=== PATIENT | female | born 1980 | race Caucasian/White ===

== ENCOUNTER 2022-09-27 19:31 | Inpatient (IN) | payer MEDICAID ==
[~2022-09-27] VITALS: Ht 165.1 cm; Wt 92.1 kg
[2022-09-27] MEDS ORDERED: ARIP5TAB37 PO (19:45)
[2022-09-27] MEDS ORDERED: LAMO100 PO (19:45)
[2022-09-27 20:11] LABS: GLUCOMETER DEV NAME(LOC) POC.BV
[2022-09-27] MEDS ORDERED: HALOPERIDOL 5 MG TABLET PO PRN (20:15)
[2022-09-27] MEDS ORDERED: LISINOPRIL 20 MG TABLET PO ONE (21:15)
[2022-09-27] MEDS: LORazepam 2 MG TABLET PO PRN (21:33)
[2022-09-27] MEDS ORDERED: INFLUENZA VIRUS VACCINE QVS 2022-23 (6MO+)/PF 60 MCG/0.5 ML SYRINGE IM. ONE (22:45)
[2022-09-28] VITALS (7 sets, daily range): BP systolic 105–133; BP diastolic 59–88
[2022-09-28] MEDS ORDERED: INFLUENZA VIRUS VACCINE QVS 2022-23 (6MO+)/PF 60 MCG/0.5 ML SYRINGE IM. ONE (01:15)
[2022-09-28] MEDS: OMEPRAZOLE 20 MG CAPSULE PO SCH ×2 (02:00→09:59)
[2022-09-28] MEDS ORDERED: ONDANSETRON HCL 4 MG TABLET PO PRN ×2 (02:15→13:30)
[2022-09-28] MEDS: LORazepam 2 MG TABLET PO PRN ×5 (04:31→20:02)
[2022-09-28 07:35] LABS: BASOPHILS % (AUTO) 1.6 % (0.0-2.0); EOSINOPHILS % (AUTO) 6.6 % (1.0-6.0); HEMATOCRIT 36.6 % (36-46); HEMOGLOBIN 12.4 g/dL (12.0-16.0); LYMPHOCYTES # (AUTO) 1.9 K/uL (1.0-4.8); LYMPHOCYTES % (AUTO) 31.2 % (22.0-44.0); MEAN CORPUSCULAR HEMOGLOBIN 30.8 pg (26.0-34.0); MEAN CORPUSCULAR HGB CONC 33.8 G/dL (31.0-37.0); MEAN CORPUSCULAR VOLUME 91 fL (80-100); MONOCYTES # (AUTO) 0.5 K/uL (0.1-1.0); MONOCYTES % (AUTO) 8.2 % (2.0-9.0); NEUTROPHILS # (AUTO) 3.2 K/uL (1.8-7.7); NEUTROPHILS % (AUTO) 52.4 % (40.0-70.0); PLATELET COUNT (AUTO) 268 K/uL (150-450); RED BLOOD CELL COUNT(AUTO) 4.01 MIL/uL (4.00-5.20); RED CELL DISTRIBUTION WIDTH 15.9 % (11.5-14.5)
[2022-09-28 07:54] LABS: HEMOGLOBIN A1C 5.2 % (3.8-5.6)
[2022-09-28 07:57] LABS: ALANINE AMINOTRANSFERASE 27 U/L (12-78); ALBUMIN 3.5 g/dL (3.4-5.0); ALKALINE PHOSPHATASE 74 U/L (46-116); ANION GAP 12 mmol/L (8-16); ASPARTATE AMINOTRANSFERASE 29 U/L (15-37); BILIRUBIN,TOTAL 0.4 mg/dL (0.1-1.0); CALCIUM, TOTAL 8.2 mg/dL (8.8-10.5); CARBON DIOXIDE 27 mmol/L (22-29); CHLORIDE 100 mmol/L (98-107); CHOL/HDL RATIO 3.6 (3.9-5.7); CHOLESTEROL 244 mg/dL (131-200); CREATININE 0.94 mg/dL (0.60-1.30); FREE T4 (FREE THYROXINE) 0.82 ng/dL (0.76-1.46); GLUCOSE,RANDOM 98 mg/dL (70-110); HDL CHOLESTEROL 67 mg/dL (40-60); LDL CHOL (CALC.) 121 mg/dL (0-130); POTASSIUM 3.2 mmol/L (3.5-5.1); SODIUM SERUM 139 mmol/L (136-145); TOTAL PROTEIN, SERUM 6.9 g/dL (6.4-8.2); TRIGLYCERIDES 281 mg/dL (15-150); UREA NITROGEN, BLOOD 7 mg/dL (7-18)
[2022-09-28 08:04] LABS: GLOMERULAR FILTR. RATE CALC > 60 mL/min (>60)
[2022-09-28] MEDS ORDERED: POTASSIUM CHLORIDE 20 MEQ ER TABLET PO ONE (08:15)
[2022-09-28] MEDS: LISINOPRIL 20 MG TABLET PO SCH (09:59)
[2022-09-28] MEDS ORDERED: MAG HYDROX/AL HYDROX/SIMETH ES 30 ML SUSPENSION UDCUP PO PRN (13:30)
[2022-09-28] MEDS ORDERED: PETROLATUM,WHITE 28 GM JELLY TP PRN (13:30)
[2022-09-28] MEDS ORDERED: CloNIDine HCL 0.1 MG TABLET PO PRN (13:30)
[2022-09-28] MEDS ORDERED: LOPERAMIDE HCL 2 MG CAPSULE PO PRN (13:30)
[2022-09-28] MEDS ORDERED: DOCUSATE SODIUM 100 MG CAPSULE PO PRN (13:30)
[2022-09-28] MEDS ORDERED: MAGNESIUM HYDROXIDE SUSPENSION 30 ML UDCUP PO PRN (13:30)
[2022-09-28] MEDS ORDERED: ALBUTEROL SULFATE HFA 90 MCG/PUFF 8 GM INHALER IH PRN (13:30)
[2022-09-28] MEDS ORDERED: NICOTINE 14 MG/24 HOUR PATCH TD PRN (13:30)
[2022-09-28] MEDS ORDERED: ACETAMINOPHEN 325 MG TABLET PO PRN (13:30)
[2022-09-28] MEDS ORDERED: IBUPROFEN 400 MG TABLET PO PRN (13:30)
[2022-09-28] MEDS ORDERED: GuaiFENesin/D-METHORPHAN [SUGAR-FREE] 200-20MG/10 ML SYRUP UDCUP PO PRN (13:30)
[2022-09-28] MEDS ORDERED: OMEP40CA21 PO (13:32)
[2022-09-28] MEDS ORDERED: HydrOXYzine PAMOATE 25 MG CAPSULE PO PRN (14:45)
[2022-09-28] MEDS ORDERED: GABAPENTIN 100 MG CAPSULE PO PRN (14:45)
[2022-09-28] MEDS ORDERED: CYANOCOBALAMIN 1,000 MCG/ML VIAL IM ONE (14:45)
[2022-09-28] MEDS: FOLIC ACID 1 MG TABLET PO SCH (16:29)
[2022-09-28] MEDS: THIAMINE 100 MG TABLET PO SCH (16:29)
[2022-09-28] MEDS: MULTIVITAMINS WITH MINERALS, THERAPEUTIC TABLET PO SCH (16:29)
[2022-09-28] MEDS: GABAPENTIN 300 MG CAPSULE PO SCH (20:01)
[2022-09-28] MEDS: ARIPiprazole 5 MG TABLET PO SCH (20:01)
[2022-09-28] MEDS: ZOLPIDEM TARTRATE 10 MG TABLET PO PRN (21:01)
[2022-09-29 00:22] VITALS: BP 110/68
[2022-09-29] MEDS: LORazepam 2 MG TABLET PO PRN (06:39)
[2022-09-29] MEDS ORDERED: LORazepam 2 MG TABLET PO PRN (07:00)
[2022-09-29 07:47] LABS: APPEARANCE,URINE TURBID (CLEAR); BILIRUBIN,URINE NEGATIVE (NEGATIVE); GLUCOSE, URINE (UA) NEGATIVE (NEGATIVE); KETONES,URINE NEGATIVE (NEGATIVE); LEUKOCYTE ESTERASE ,URINE NEGATIVE (NEGATIVE); NITRATE,URINE NEGATIVE (NEGATIVE); OCCULT BLOOD,URINE MODERATE (NEGATIVE); PROTEIN,URINE 30-70 mg/dL (NEGATIVE); SPECIFIC GRAVITIY, URINE 1.017 (1.003-1.030); UROBILINOGEN,URINE <=1.0 mg/dL (<=1.0)
[2022-09-29 07:59] LABS: AMPHET/METH SCREEN,URINE NEGATIVE (NEGATIVE); BARBITURATE SCREEN, URINE NEGATIVE (NEGATIVE); BENZODIAZEPINES SCREEN,URINE NEGATIVE (NEGATIVE); CANNABINOID SCREEN,URINE NEGATIVE (NEGATIVE); COCAINE SCREEN,URINE NEGATIVE (NEGATIVE); METHADONE SCREEN, URINE NEGATIVE (NEGATIVE); OPIATE SCREEN,URINE NEGATIVE (NEGATIVE)
[2022-09-29 08:00] VITALS: BP 114/77
[2022-09-29 08:02] LABS: PHENCYCLIDINE SCREEN,URINE NEGATIVE (NEGATIVE)
[2022-09-29 08:17] LABS: AMORPHOUS SEDIMENT,UR Many /LPF (None Seen); BACTERIA,URINE None Seen /HPF (None Seen); RBC,URINE None Seen /HPF (0-2); SQUAMOUS EPITHELIAL CELL,UR Rare /LPF (None Seen); WBC,URINE None Seen /HPF (0-5)
[2022-09-29 08:34] VITALS: BP 114/77
[2022-09-29] MEDS: OMEPRAZOLE 20 MG CAPSULE PO SCH (09:40)
[2022-09-29] MEDS: MULTIVITAMINS WITH MINERALS, THERAPEUTIC TABLET PO SCH (09:40)
[2022-09-29] MEDS: FOLIC ACID 1 MG TABLET PO SCH (09:40)
[2022-09-29] MEDS: THIAMINE 100 MG TABLET PO SCH ×2 (09:40→16:45)
[2022-09-29] MEDS: LamoTRIgine 100 MG TABLET PO SCH (09:40)
[2022-09-29] MEDS: LISINOPRIL 20 MG TABLET PO SCH (09:40)
[2022-09-29] MEDS: LORazepam 2 MG TABLET PO SCH ×4 (09:41→20:23)
[2022-09-29 12:00] VITALS: BP 110/86
[2022-09-29 15:41] VITALS: BP 110/69
[2022-09-29 18:39] VITALS: BP 100/64
[2022-09-29] MEDS: ARIPiprazole 5 MG TABLET PO SCH (20:23)
[2022-09-29] MEDS: GABAPENTIN 300 MG CAPSULE PO SCH (20:23)
[2022-09-29] MEDS: ZOLPIDEM TARTRATE 10 MG TABLET PO PRN (21:31)
[2022-09-30] VITALS: BP 102/66
[2022-09-30] MEDS: LISINOPRIL 20 MG TABLET PO SCH (08:16)
[2022-09-30] MEDS: FOLIC ACID 1 MG TABLET PO SCH (08:16)
[2022-09-30] MEDS: LamoTRIgine 100 MG TABLET PO SCH (08:16)
[2022-09-30] MEDS: OMEPRAZOLE 20 MG CAPSULE PO SCH (08:16)
[2022-09-30] MEDS: MULTIVITAMINS WITH MINERALS, THERAPEUTIC TABLET PO SCH (08:16)
[2022-09-30] MEDS: THIAMINE 100 MG TABLET PO SCH ×2 (08:16→16:21)
[2022-09-30] MEDS: LORazepam 2 MG TABLET PO SCH ×4 (08:16→20:07)
[2022-09-30 08:26] VITALS: BP 128/77
[2022-09-30 20:01] VITALS: BP 124/63
[2022-09-30] MEDS: GABAPENTIN 300 MG CAPSULE PO SCH (20:07)
[2022-09-30] MEDS: AMOX TR/POT CLAV 875 MG/125 MG TABLET PO SCH (20:07)
[2022-09-30] MEDS: ARIPiprazole 5 MG TABLET PO SCH (20:07)
[2022-09-30] MEDS: ZOLPIDEM TARTRATE 10 MG TABLET PO PRN (21:11)
[2022-10-01] MEDS ORDERED: LORazepam 1 MG TABLET PO PRN (07:00)
[2022-10-01 08:25] VITALS: BP 113/66
[2022-10-01] MEDS ORDERED: LORazepam 1 MG TABLET PO SCH (09:00)
[2022-10-01] MEDS ORDERED: LAMO100 PO (10:00)
[2022-10-01] MEDS ORDERED: LISI-894 PO (10:00)
[2022-10-01] MEDS ORDERED: GABA-1181 PO (10:00)
[2022-10-01] MEDS ORDERED: ARIP5TAB37 PO (10:00)
[2022-10-01] MEDS ORDERED: OMEP20 PO (10:00)
[2022-10-01] MEDS: AMOX TR/POT CLAV 875 MG/125 MG TABLET PO SCH (10:11)
[2022-10-01] MEDS: FOLIC ACID 1 MG TABLET PO SCH (10:12)
[2022-10-01] MEDS: OMEPRAZOLE 20 MG CAPSULE PO SCH (10:12)
[2022-10-01] MEDS: THIAMINE 100 MG TABLET PO SCH (10:12)
[2022-10-01] MEDS: MULTIVITAMINS WITH MINERALS, THERAPEUTIC TABLET PO SCH (10:12)
[2022-10-01] MEDS: LamoTRIgine 100 MG TABLET PO SCH (10:12)
[2022-10-01] MEDS: LISINOPRIL 20 MG TABLET PO SCH (10:12)
[2022-10-01] MEDS ORDERED: AMOX1TAB16 PO ×2 (10:32→10:35)
[2022-10-02] MEDS ORDERED: LORazepam 1 MG TABLET PO PRN (07:00)
== END 2022-10-01 11:45 | disposition home or self-care (01) | DRG 750 ==
LOC: B2S 20:06
PROVIDERS: ADMIT Psychiatry & Neurology Psychiatry; ATTEND Psychiatry & Neurology Psychiatry
DX: F25.1 Schizoaffective disorder, depressive type (principal); E87.6 Hypokalemia; F10.20 Alcohol dependence, uncomplicated; I10 Essential (primary) hypertension; Z20.822 Contact with and (suspected) exposure to COVID-19; Z88.2 Allergy status to sulfonamides
CPT/HCPCS: 80053; 80061; 80307; 81001; 83036; 84132; 84439; 84443; 85025; J3420; Q0162